=== PATIENT | male | born 1980 | race Caucasian/White ===

== ENCOUNTER 2021-04-11 13:12 | Emergency (ER) | payer OTHER ==
[~2021-04-11] VITALS: Ht 182.9 cm; Wt 79.4 kg
[2021-04-11 14:56] LABS: BILIRUBIN Negative (Negative); BLOOD Negative (Negative); CLARITY Clear (Clear); COLOR Yellow (Yellow); GLUCOSE Negative (Negative); KETONE Negative (Negative); LEUKO ESTERASE Negative (Negative); NITRITE Negative (Negative); PH 8.5 (4.5-8.0); UROBILINOGEN 0.2 E.U./dl (0.0-1.0)
[2021-04-11 15:04] LABS: EPITHELIAL CELLS 0-2; RBC 0-2 rbc/hpf (0-2); WBC 0-2 wbc/hpf (0-5)
[2021-04-11 15:05] LABS: ALBUMIN 3.9 gm/dl (3.1-4.5); ALKALINE PHOSPHATASE 82 U/L (45-117); BUN 6 mg/dl (7-24); CHLORIDE 108 mmol/L (98-107); CREATININE 0.73 mg/dL (0.70-1.30); POTASSIUM 4.1 mmol/L (3.5-5.1); SGOT/AST 10 IU/L (3-35); SGPT/ALT 21 U/L (12-78); SODIUM 138 mmol/L (136-145); TOTAL PROTEIN 7.4 gm/dL (6.4-8.2)
[2021-04-11] MEDS ORDERED: REGLAN10 M1 PO (16:09)
[2021-04-11] MEDS ORDERED: IMITREX50 MG PO (16:09)
[2021-04-11 18:41] LABS: BASO % 0.3 % (0.0-1.0); EOS % 0.9 % (1.0-4.0); HEMATOCRIT 48.2 % (42.0-52.0); LYMPH % 12.3 % (27.0-41.0); MEAN CELL VOLUME 92.9 fl (80.0-94.0); MEAN CORPUSCULAR HGB 32.2 pg (27.0-31.0); MEAN CORPUSCULAR HGB CONC 34.6 g/dl (33.0-37.0); MEAN PLATELET VOLUME 11.4 fl (9.6-12.3); MONO % 5.1 % (3.0-9.0); NEUT % 81.3 % (47.0-73.0); PLATELET COUNT AUTOMATED 112 10*3/uL (130-400); RED BLOOD COUNT 5.19 10*6/uL (4.50-5.90); RED CELL DISTRI WIDTH 12.3 % (0-14.5)
[2021-04-11 18:42] LABS: EOS # 0.1 10*3/uL (0.0-0.4); LYMPH # 0.9 10*3/uL (1.3-4.4); MONO # 0.4 10*3/uL (0.1-1.0); NEUT # 5.7 10*3/uL (2.3-7.9)
== END 2021-04-11 16:13 | disposition home or self-care (01) ==
LOC: ED 13:12
PROVIDERS: Emergency Medicine
DX: U07.1 COVID-19 (principal); G43.909 Migraine, unspecified, not intractable, without status migrainosus; I10 Essential (primary) hypertension